=== PATIENT | female | born 1950 | race Two or more races ===

== ENCOUNTER 2021-06-07 06:00 | Day surgery (SDC) | payer OTHER ==
[~2021-06-07 06:00] MED LIST: ADULT LOW DOSE81 M1 PO; ALEVE220 MG PO; CELEBREX50 MG PO; COZAAR25 MG PO; CRESTOR5 MG PO; D3 + K2 DOTS 11 EACH PO; HYDROCHLOROTH12.5 MG PO; MONTELUKAST SOD10 MG PO; TYLENOL ARTHRI650 MG PO; VITAMIN C500 M6 PO
== END 2021-06-07 10:50 | disposition home or self-care (01) ==
LOC: CIR.AMB 06:00
PROVIDERS: ATTEND Orthopaedic Surgery
DX: M75.121 Complete rotator cuff tear or rupture of right shoulder, not specified as traumatic (principal); M24.111 Other articular cartilage disorders, right shoulder; M75.21 Bicipital tendinitis, right shoulder; I10 Essential (primary) hypertension; E78.5 Hyperlipidemia, unspecified; Z20.822 Contact with and (suspected) exposure to COVID-19